=== PATIENT | male | born 1950 | race Caucasian/White ===

== ENCOUNTER → 2019-06-30 | Outpatient (CLI) | payer OTHER ==
--- NOTE | 2019-06-30 17:05 | CARDNUC ---
[place] [address] CARDIAC NUCLEAR IMAGING REPORT Name: WILTON MALDONADO Room: [facility]#: [id number] Admission: 06/30/19 Attend Phys: Lanette Deleon, Discharge: Date of : 52 Date of Service: 06/30/19 1704 Report #: [id number] THIS REPORT FOR: //name// APPROVED REPORT Study performed: 06/30/2019 14:13:37 Exam: Nuclear Stress Test Indication: fatigue, tachycardia Patient Location: Out-Patient Stress Tech: Jessica Reynolds Stress Nurse: Sylvia Lyons RN NM Tech:TORI Vasquez Ht: 5 ft 11 in Wt: 185 lbs BSA: 2.04 m2 BMI: 25.79 Medical History Medical History: hyperlipidemia Medications: simvastatin Allergies: nkda Cardiac Risk Factors: Age, Hyperlipidemia, Tobacco History (Former) Exercise History: Physically active Stress Test Details Stress Test: Pharmacologic stress testing performed using 0.4 mg of regadenoson per 5 mL given IV over 10 seconds. Reason for pharmacologic stress test: physical limitation. HR Resting HR: 60 bpm Max Heart Rate (APMHR): 152 bpm Max HR Achieved: 86 bpm Target HR (85% APMHR): 129 bpm % of APMHR: 56 Recovery HR: 74 bpm BP Resting BP: 119/74 mmHg Max BP: 120/65 mmHg ECG Resting ECG: Sinus Rhythm Stress ECG: Sinus Rhythm ST Change: None Arrhythmia: [place] [address] CARDIAC NUCLEAR IMAGING REPORT Name: WILTON MALDONADO Room: [facility]#: [id number] Admission: 06/30/19 Attend Phys: Lanette Deleon, Discharge: Date of : 52 Date of Service: 06/30/19 1704 Report #: [id number] Recovery ECG: Sinus Rhythm Recovery ST Change: None Recovery Arrhythmia: None Clinical Reason for Termination: Completed protocol Exercise duration: 0 min sec Exercise capacity: 1 METs The patient had no significant symptoms with Lexiscan infusion. Stress ECG Conclusion The baseline 12-lead EKG shows sinus rhythm with flattening of the T waves. There were no significant ST segment abnormalities. EKGs obtained during Lexiscan infusion showed T-wave inversion in the inferior leads without significant ST segment deviation. There were no stress-induced arrhythmias. NM EXAM: Myocardial Perfusion REST/STRESS Imaging Protocol: Rest Tc-99m/Stress Tc-99m 1 day Resting Data Rest SPECT myocardial perfusion imaging was performed in supine position 30 minutes following the intravenous injection of 10.8 mCi of Tc-99m Sestamibi. Time of rest injection: 1245 Date: 06/30/2019 The images were gated to evaluate regional wall motion and calculate left ventricular ejection fraction. Administration Route: IV Administration Site: Right AC Pharmacologic Stress Pharmacologic stress test was performed by injecting Regadenoson 0.4 mg IV push followed by the intravenous injection of 36.0 mCi of Tc-99m Sestamibi. Time of stress injection: 1410 Date: 06/30/2019 Administration Route: IV Administration Site: Right AC Gated Stress SPECT was performed 40 minutes after stress injection. The images were gated to evaluate regional wall motion and calculate left ventricular ejection fraction. Prone imaging was performed. Study Quality Study: [place] [address] CARDIAC NUCLEAR IMAGING REPORT Name: WILTON MALDONADO Room: [facility]#: [id number] Admission: 06/30/19 Attend Phys: Lanette Deleon, Discharge: Date of : 52 Date of Service: 06/30/19 1704 Report #: [id number] Artifact: No artifact Study Data At rest, the left ventricular ejection fraction was 45%.. Post stress, the left ventricular ejection was 56%.. TID = 1.01. Perfusion Myocardial perfusion images obtained at rest and post Lexiscan stress showed the radioisotope throughout the myocardium without the. Wall Motion Normal left ventricular wall motion. Nuclear Conclusion ECG Findings: negative for ischemia Clinical Findings: negative for ischemia Nuclear Findings: negative for ischemia Exercise Capacity: not assessed Left Ventricular Function: preserved Risk Study: low Myocardial perfusion images show no defect to suggest infarct or ischemia. Global LV systolic function appears normal on gated studies. This is a low risk study. <Conclusion> The baseline 12-lead EKG shows sinus rhythm with flattening of the T waves. There were no significant ST segment abnormalities. EKGs obtained during Lexiscan infusion showed T-wave inversion in the inferior leads without significant ST segment deviation. There were no stress-induced arrhythmias. <ELECTRONICALLY SIGNED> By: Jeffry Kenyon MD, FACC 06/30/191703 03 03 Jeffry Kenyon MD, FACC /INF
== END ==
LOC: M.NUC 06-09 10:23
DX: R94.31 Abnormal electrocardiogram [ECG] [EKG] (principal); R00.0 Tachycardia, unspecified; E78.5 Hyperlipidemia, unspecified; Z79.899 Other long term (current) drug therapy

== ENCOUNTER → 2021-05-08 | Outpatient (CLI) | payer OTHER | LOC: M.CT 07:32 | PROVIDERS: ATTEND Family Medicine | DX: Z13.6 Encounter for screening for cardiovascular disorders (principal); I25.10 Atherosclerotic heart disease of native coronary artery without angina pectoris ==